=== PATIENT | female | born 1985 | race American Indian/Alaskan Native ===

== ENCOUNTER 2016-10-07 18:00 | Emergency (ER) | payer OTHER, MEDICAID ==
[2016-10-07 18:17] VITALS: BP 120/79; PULSE 74; RESP 18; TEMP 98; O2SAT 100
--- NOTE | 2016-10-07 18:27 | ED PDOC ---
HPI: General Adult Time Seen by Provider: 10/07/16 18:23 Chief Complaint (Nursing): Medical Clearance Chief Complaint (Provider): Medical evaluation History Per: Patient History/Exam Limitations: no limitations Onset/Duration Of Symptoms: Mins Have you had recent travel within the past 21 days to any of the following countries: [place], [place], [place] or [place]?: No Current Symptoms Are (Timing): Still Present Additional History Per: Patient Additional Complaint(s): The patient is a 30 y/o female who presents to the ED for evaluation s/p being stuck in an elevator for about 20 minutes prior to arrival. Patient reports the elevator halted suddenly and she was "jerked around" after which she felt dizzy , had mild headache and mild blurry vision. She denies any falls, head injury or vomiting. No chest pain, SOB or BYNUM upon arrival. Patient states she feels anxious and her body "feels weird." She rates headache pain upon arrival as 3/ 10. Past Medical History Reviewed: Historical Data, Nursing Documentation, Vital Signs Vital Signs: Last Vital Signs Temp 98 F 10/07/16 18:14 Pulse 74 10/07/16 18:14 Resp 18 10/07/16 18:14 BP 120/79 10/07/16 18:14 Pulse Ox 100 10/07/16 18:46 - Medical History PMH: No Chronic Diseases - Surgical History Surgical History: No Surg Hx - Family History Family History: States: No Known Family Hx - Living Arrangements Living Arrangements: With Family - Social History Current smoker - smoking cessation education provided: No Alcohol: None Drugs: Denies - Home Medications Home Medications: Ambulatory Orders Medication Instructions Recorded Pantoprazole Sodium [Protonix] 40 mg PO DAILY #30 ect 03/08/16 - Allergies Allergies/Adverse Reactions: Allergies Allergy/AdvReac Type Severity Reaction Status Date / Time No Known Allergies Allergy Verified 03/08/16 14:06 Review of Systems ROS Statement: Except As Marked, All Systems Reviewed And Found Negative Eyes: Positive for: Vision Change (mild blurry vision, resolving) Cardiovascular: Negative for: Chest Pain, Palpitations Respiratory: Negative for: Shortness of Breath, SOB with Exertion Gastrointestinal: Negative for: Nausea, Vomiting Musculoskeletal: Negative for: Other (fall, head injury) Neurological: Positive for: Headache, Dizziness Physical Exam - Reviewed Nursing Documentation Reviewed: Yes Vital Signs Reviewed: Yes - Physical Exam Appears: Positive for: Uncomfortable Head Exam: Positive for: ATRAUMATIC, NORMAL INSPECTION, NORMOCEPHALIC Skin: Positive for: Normal Color, Warm, DRY Eye Exam: Positive for: Normal appearance, EOMI, PERRL ENT: Positive for: Normal ENT Inspection, TM Is/Are (clear b/l) Neck: Positive for: Normal Cardiovascular/Chest: Positive for: Regular Rate, Rhythm Respiratory: Positive for: Normal Breath Sounds. Negative for: Respiratory Distress Neurologic/Psych: Positive for: Alert, Oriented, Mood/Affect (anxious) - Laboratory Results Urine POC: Negative - ECG Interpretation Of ECG: NSR 74 bpm, no acute finding, reviewed by PA and ED attending. O2 Sat by Pulse Oximetry: 100 (RA) Pulse Ox Interpretation: Normal Medical Decision Making Medical Decision Making: Time: 1829 Impression: 30 year old with anxiety s/p being stuck in elevator. No neuro deficits noted. Plan: * EKG * Tylenol 650 mg PO * Reassess Patient states symptoms are resolving. She was offered crisis consult but she declined. Patient was instructed to follow up with PMD or employee health. Scribe Attestation: Documented by Adela Suazo acting as a scribe for MAUREEN Collier Provider Attestation: All medical record entries made by the Scribe were at my direction and personally dictated by me. I have reviewed the chart and agree that the record accurately reflects my personal performance of the history, physical exam, medical decision making, and the department course for this patient. I have also personally directed, reviewed, and agree with the discharge instructions and disposition. Disposition - Clinical Impression Clinical Impression: Headache, Anxiety - Patient ED Disposition Is Patient to be Admitted: No Counseled Patient/Family Regarding: Diagnosis, Need For Followup - Disposition Referrals: [facility] [Outside] Disposition: Routine/Home Disposition Time: 19:16 Condition: STABLE Additional Instructions: Follow up with primary care doctor or return any time if acutely worse. Instructions: Anxiety (ED), General Headache (ED) Forms: [facility] ED School/Work Excuse
--- NOTE | 2016-10-08 12:45 | CARD ---
APPROVED REPORT EKG Measurement Heart [id number] <Conclusion> Normal sinus rhythm Normal ECG
== END 2016-10-07 19:33 | disposition home or self-care (01) ==
LOC: H.ER 18:00
DX: R51 Headache (principal); F41.9 Anxiety disorder, unspecified

== ENCOUNTER 2017-03-23 17:34 | Emergency (ER) | payer MEDICAID, OTHER ==
[2017-03-23 17:34] VITALS: BMI 24.9
[2017-03-23 18:00] VITALS: BP 137/88; PULSE 102; RESP 17; TEMP 97; O2SAT 100
--- NOTE | 2017-03-23 18:51 | ED PDOC ---
HPI: CCC, URI, Sore Throat Time Seen by Provider: 03/23/17 18:03 Chief Complaint (Nursing): ENT Problem Chief Complaint (Provider): ENT problem History Per: Patient History/Exam Limitations: no limitations Onset/Duration Of Symptoms: Days (14 days) Current Symptoms Are (Timing): Still Present Location Of Pain: Throat Additional Complaint(s): 31 y/o female presents to the ED complaining of worsened symptoms after being diagnosed with a sinus infection and a UTI, onset of 14 days ago. She was given antibiotics for the UTI, and Flonase and Claritin for the sinus infection. Her condition worsened, as she developed a sore throat associated with swelling. Of note, patient self medicated with unknown antibiotic today. She denies rash, fever, and headache. PCP: Javier Feliciano Past Medical History Reviewed: Historical Data, Nursing Documentation, Vital Signs Vital Signs: Last Vital Signs Temp 97 F L 03/23/17 17:56 Pulse 102 H 03/23/17 17:56 Resp 17 03/23/17 17:56 BP 137/88 03/23/17 17:56 Pulse Ox 100 03/23/17 17:56 - Medical History PMH: No Chronic Diseases - Surgical History Surgical History: No Surg Hx - Family History Family History: States: Unknown Family Hx - Social History Current smoker - smoking cessation education provided: No Ex-Smoker (has not smoked in the last 12 months): No Alcohol: None Drugs: Denies - Immunization History Hx Tetanus Toxoid Vaccination: No Hx Influenza Vaccination: No Hx Pneumococcal Vaccination: No - Home Medications Home Medications: Ambulatory Orders Medication Instructions Recorded Amoxicillin [Amoxil 500 mg Cap] 500 mg PO TID #30 cap 03/23/17 Naproxen [Naprosyn] 500 mg PO BID PRN #30 tab 03/23/17 - Allergies Allergies/Adverse Reactions: Allergies Allergy/AdvReac Type Severity Reaction Status Date / Time No Known Allergies Allergy Verified 03/23/17 17:56 Review of Systems ROS Statement: Except As Marked, All Systems Reviewed And Found Negative Constitutional: Negative for: Fever Skin: Negative for: Rash Neurological: Negative for: Headache Physical Exam - Reviewed Nursing Documentation Reviewed: Yes Vital Signs Reviewed: Yes - Physical Exam Eye Exam: Positive for: Normal appearance, EOMI, PERRL ENT: Positive for: Sinus Pain/Drainage (bilaterally maxillary tenderness). Negative for: Pharyngeal Erythema, Tonsillar Exudate, Tonsillar Swelling Cardiovascular/Chest: Positive for: Regular Rate, Rhythm. Negative for: Murmur Respiratory: Positive for: Normal Breath Sounds. Negative for: Respiratory Distress Lymphatic: Positive for: Adenopathy (left sided sub-mandibular Lymphadenopathy bilaterally; anterior cervical lymphadenopathy) - ECG O2 Sat by Pulse Oximetry: 100 - Progress ED Course And Treament: If strep test is done it will likely come back negative because of the antibiotics taken by the patient. Octav[employer] agrees with the plan will continue to take Flonase. Medical Decision Making Medical Decision Making: Time: --18:29 Impression: --pharyngitis, sinusitis Plan: --Rx given --18:31 Patient to be discharged home Scribe Attestation: Documented by Russel Keith acting as a scribe for MAUREEN Yeboah. Disposition - Clinical Impression Clinical Impression: Sinusitis, Pharyngitis - Patient ED Disposition Is Patient to be Admitted: No - Disposition Referrals: [facility] [Outside] Disposition: Routine/Home Disposition Time: 18:31 Condition: STABLE Additional Instructions: Follow up with PMD in 2 days for further evaluation. Prescriptions: Amoxicillin [Amoxil 500 mg Cap] 500 mg PO TID #30 cap Naproxen [Naprosyn] 500 mg PO BID PRN #30 tab PRN Reason: Pain Forms: [facility] ([place]onegas[place]), [facility] ED School/Work Excuse Print Language: AMHARIC
== END 2017-03-23 18:37 | disposition home or self-care (01) ==
LOC: H.ER 17:34
DX: J32.9 Chronic sinusitis, unspecified (principal); J02.9 Acute pharyngitis, unspecified

== ENCOUNTER 2017-09-13 16:09 | Emergency (ER) | payer MEDICAID, OTHER ==
[2017-09-13 16:09] VITALS: BMI 24.9
[2017-09-13 16:19] VITALS: BP 109/71; PULSE 65; RESP 16; TEMP 98; O2SAT 100
--- NOTE | 2017-09-13 16:44 | ED PDOC ---
HPI:Nausea, Vomiting, Diarrhea Time Seen by Provider: 09/13/17 16:20 Chief Complaint (Nursing): Abdominal Pain Chief Complaint (Provider): Diarrhea History Per: Patient History/Exam Limitations: no limitations Onset/Duration Of Symptoms: Days (x1) Current Symptoms Are (Timing): Still Present Quality Of Discomfort: Cramping Associated Symptoms: Chills, Nausea, Diarrhea, Loss Of Appetite. denies: Fever , Vomiting, Urinary Symptoms Additional Complaint(s): 31 year old female with no significant past medical history presents to the ED complaining of 2-3 episodes of diarrhea onset last night associated mild abdominal cramping pain, lightheadedness, mild nausea, and chills. She reports her nephew and son had similar symptoms in the last 5 days. Patient states she has a decreased appetite and PO intake but has tried to increase her fluids intake. She denies fever, vomiting, urinary complaints, vaginal problems, or any other medical complaints. PMD: Dr. Herrera Past Medical History Reviewed: Historical Data, Nursing Documentation, Vital Signs Vital Signs: Last Vital Signs Temp 98.0 F 09/13/17 16:16 Pulse 65 09/13/17 16:16 Resp 16 09/13/17 16:16 BP 109/71 09/13/17 16:16 Pulse Ox 100 09/13/17 16:16 - Medical History PMH: No Chronic Diseases - Surgical History Surgical History: No Surg Hx - Family History Family History: States: No Known Family Hx - Social History Current smoker - smoking cessation education provided: No Ex-Smoker (has not smoked in the last 12 months): No - Immunization History Hx Tetanus Toxoid Vaccination: No Hx Influenza Vaccination: Yes Hx Pneumococcal Vaccination: No - Home Medications Home Medications: Ambulatory Orders Medication Instructions Recorded Dicyclomine [Bentyl] 20 mg PO QID PRN #20 tab 09/13/17 Ondansetron ODT [Zofran ODT] 1 odt PO Q6 PRN #20 odt 09/13/17 - Allergies Allergies/Adverse Reactions: Allergies Allergy/AdvReac Type Severity Reaction Status Date / Time No Known Allergies Allergy Verified 07/26/17 22:25 Review of Systems ROS Statement: Except As Marked, All Systems Reviewed And Found Negative Constitutional: Positive for: Chills. Negative for: Fever Gastrointestinal: Positive for: Nausea (mild), Abdominal Pain (mild cramping), Diarrhea (2-3 episodes). Negative for: Vomiting Genitourinary Female: Negative for: Dysuria, Hematuria, Vaginal Discharge, Vaginal Bleeding Physical Exam - Reviewed Nursing Documentation Reviewed: Yes Vital Signs Reviewed: Yes - Physical Exam Appears: Positive for: Well, No Acute Distress Head Exam: Positive for: ATRAUMATIC, NORMOCEPHALIC Skin: Positive for: Normal Color, Warm, Dry Eye Exam: Positive for: EOMI, Normal appearance, PERRL ENT: Positive for: Other (mucous membranes moist) Neck: Positive for: Normal, Painless ROM Gastrointestinal/Abdominal: Positive for: Bowel Sounds (normal active), Soft. Negative for: Tenderness, Mass, Distended, Guarding, Rebound - ECG O2 Sat by Pulse Oximetry: 100 (RA) Pulse Ox Interpretation: Normal Medical Decision Making Medical Decision Making: Time: 16:56 Initial Impression: Diarrhea, likely infectious Initial Plan: --Zofran ODT 4 mg PO --Benign physical exam Scribe Attestation: Documented by Stella Connelly, acting as a scribe for Pippa Segundo MD Provider Scribe Attestation: All medical record entries made by the Scribe were at my direction and personally dictated by me. I have reviewed the chart and agree that the record accurately reflects my personal performance of the history, physical exam, medical decision making, and the department course for this patient. I have also personally directed, reviewed, and agree with the discharge instructions and disposition. Disposition - Clinical Impression Clinical Impression: Gastroenteritis - Disposition Referrals: Javier Feliciano MD [Family Provider] - Disposition: Routine/Home Disposition Time: 16:42 Condition: STABLE Prescriptions: Dicyclomine [Bentyl] 20 mg PO QID PRN #20 tab PRN Reason: abdominal pain Ondansetron ODT [Zofran ODT] 1 odt PO Q6 PRN #20 odt PRN Reason: Nausea/Vomiting Instructions: Diarrhea in Adolescents and Adults, Gastroenteritis (ED) Forms: [facility] ED School/Work Excuse
== END 2017-09-13 17:01 | disposition home or self-care (01) ==
LOC: H.ER 16:09
DX: K52.9 Noninfective gastroenteritis and colitis, unspecified (principal)